=== PATIENT | male | born 1935 | race Caucasian/White ===

== ENCOUNTER 2016-09-11 12:25 | Inpatient (IN) | payer MEDICARE, OTHER ==
[2016-09-11] MEDS ORDERED: Acetaminophen 325 MG Tab PO PRN (14:17)
[2016-09-11] MEDS ORDERED: oxyCODONE 5 MG Tab PO PRN (14:17)
[2016-09-11] MEDS: atorvaSTATin 10 MG Tab PO SCH (19:33)
[2016-09-11] MEDS: Metoprolol Tartrate 25 MG Tab PO SCH (19:34)
[2016-09-12] MEDS ORDERED: PROBENECID 250 MG PO SCH (08:00)
[2016-09-12] MEDS: Aspirin 325 MG Tab.EC PO SCH (08:01)
[2016-09-12] MEDS: Polyethylene Glycol 3350 Powder 17 GM Packet PO SCH (08:01)
[2016-09-12] MEDS: Metoprolol Tartrate 25 MG Tab PO SCH ×2 (08:01→20:46)
[2016-09-12] MEDS: Thiamine 100 MG Tab PO SCH (08:01)
[2016-09-12] MEDS: Enoxaparin 30 MG/0.3 ML Syringe SUBCUT SCH (08:01)
[2016-09-12] MEDS: Cyanocobalamin (Vitamin B12) 1,000 MCG Tab PO SCH (08:01)
[2016-09-12] MEDS: Tamsulosin 0.4 MG Cap.ER PO SCH (08:02)
[2016-09-12] MEDS: Folic Acid 1 MG Tab PO SCH (08:02)
[2016-09-12] MEDS: Multivitamins with Iron/Calcium/Folic Acid/Minerals Tab PO SCH (08:02)
[2016-09-12] MEDS: oxyCODONE 5 MG Tab PO PRN ×3 (08:02→21:18)
[2016-09-12] MEDS: Allopurinol 100 MG Tab PO SCH (10:43)
[2016-09-12] MEDS: atorvaSTATin 10 MG Tab PO SCH (20:47)
--- NOTE | 2016-09-12 21:35 | PCM.HP ---
H&P History of Present Illness - General Date of Service: 09/12/16 Admit Problem/Dx: Admission Diagnosis/Problem Admission Diagnosis/Problem Rehabilitation therapy 80 year old male status post right total knee arthroplasty. Source of Information: Patient - History of Present Illness Duration of Symptoms: Reports: Day(s): Location: Reports: lower extremity, right Quality: Reports: Ache Improves with: Reports: Cold therapy Worsens with: Reports: Movement Associated Symptoms: Reports: no other symptoms Right Knee Pain Score (Numeric/FACES): 3 - Related Data Allergies/Adverse Reactions: Allergies Allergy/AdvReac Type Severity Reaction Status Date / Time lisinopril Allergy Swelling Verified 09/11/16 13:56 NSAIDS (Non-Steroidal AdvReac Renal Verified 09/11/16 13:56 Anti-Inflamma Failure Home Medications: Home Meds Allopurinol [Zyloprim] 100 mg PO DAILY 08/16/13 [History] Probenecid 250 mg PO DAILY 08/16/13 [History] Metoprolol Tartrate [Lopressor] 12.5 mg PO BID 09/04/13 [History] atorvaSTATin [Lipitor] 10 mg PO BEDTIME 09/04/13 [History] Aspirin 325 mg PO DAILY 06/16/15 [History] Cyanocobalamin (Vitamin B-12) [B-12] 1,000 mcg PO DAILY 06/16/15 [History] Folic Acid 1 mg PO DAILY 06/16/15 [History] Multivitamin with Minerals [Multiple Vitamin] 1 tab PO DAILY 06/16/15 [History] Thiamine HCl 100 mg PO DAILY 06/16/15 [History] Acetaminophen [Tylenol] 650 mg PO Q6H PRN 09/09/15 [History] Enoxaparin [Lovenox] 30 mg SUBCUT DAILY 09/11/16 [History] Polyethylene Glycol 3350 [MiraLAX] 17 gm PO DAILY PRN 09/11/16 [History] Sennosides/Docusate Sodium [Senna-Docusate Sodium Tablet] 1 tab PO DAILY [History] Tamsulosin [Flomax] 0.4 mg PO DAILY 09/11/16 [History] oxyCODONE HCl [Roxicodone] 5 - 10 mg PO Q4HR PRN 09/11/16 [History] Past Medical History HEENT History: Reports: Allergic rhinitis, Cataract Cardiovascular History: Reports: Heart murmur, Heart valve replacement, Hypertension Respiratory History: Reports: Intubation, previous Gastrointestinal History: Reports: Colon polyp Genitourinary History: Reports: BPH Musculoskeletal History: Reports: Arthritis, Back pain, chronic, Fracture, Gout , Osteoarthritis Other Musculoskeletal History: FX ANKLE YRS AGO Psychiatric History: Reports: Other (see below) Other Psychiatric History: ETOH abuse Endocrine/Metabolic History: Reports: Obesity/BMI 30+ - Past Surgical History HEENT Surgical History: Reports: Cataract surgery Cardiovascular Surgical History: Reports: Valve replacement Respiratory Surgical History: Reports: None GI Surgical History: Reports: Colonoscopy, EGD, Hernia repair/other Endocrine Surgical History: Reports: None Neurological Surgical History: Reports: Laminectomy Musculoskeletal Surgical History: Reports: Hip replacement Other Musculoskeletal Surgeries/Procedures:: Lumbar laminectomy 4-5. LTHA Dermatological Surgical History: Reports: None Social & Family History - Tobacco Use Smoking Status *Q: Never Smoker Years of Tobacco use: 2 Used Tobacco, but Quit: No Second Hand Smoke Exposure: No - Caffeine Use Caffeine Use: Reports: Coffee - Alcohol Use Days Per Week of Alcohol Use: 5 Number of Drinks Per Day: 2 Total Drinks Per Week: 10 - Recreational Drug Use Recreational Drug Use: No Drug Use in Last 12 Months: No H&P Review of Systems - Review of Systems: Review Of Systems: See Below General: Denies: fever, chills HEENT: Reports: no symptoms Pulmonary: Reports: No Symptoms. Denies: Shortness of Breath, Cough Cardiovascular: Denies: chest pain, dyspnea on exertion Gastrointestinal: Reports: No symptoms. Denies: Abdominal pain, Constipation, Diarrhea, Nausea, Vomiting Genitourinary: Reports: no symptoms. Denies: dysuria, frequency Musculoskeletal: Reports: joint pain Skin: Reports: no symptoms. Denies: rash Psychiatric: Reports: no symptoms Neurological: Reports: No Symptoms Hematologic/Lymphatic: Reports: no symptoms Immunologic: Reports: no symptoms Exam - Exam Exam: See Below - Vital Signs Vital Signs: Last Vital Signs Temp 36.9 C 09/12/16 17:23 Pulse 85 09/12/16 17:23 Resp 20 09/12/16 17:23 BP 122/80 09/12/16 20:46 Pulse Ox 96 09/12/16 17:23 Weight: 78.471 kg - Exam General: alert, oriented HEENT: Conjunctiva clear, EOMI, Mucosa moist & pink, Pupils equal, Pupils reactive Neck: supple Lungs: Clear to auscultation, Normal respiratory effort Cardiovascular: regular rate, regular rhythm, systolic murmur Abdomen: normal bowel sounds, soft (Male) Exam: Deferred Extremities: edema (trace) Skin: warm, dry *Q Meaningful Use (ADM) - VTE *Q VTE Criteria *Q: - Stroke *Q Stroke Criteria *Q: - AMI *Q AMI Criteria *Q: - Problem List (1) History of total knee arthroplasty SNOMED Code(s): 0904609938118, 857756902, 6361250746464 ICD Code: Z96.659 - PRESENCE OF UNSPECIFIED ARTIFICIAL KNEE JOINT Status: Acute Current Visit: No Qualifiers: Laterality: left Qualified Code(s): Z96.652 - Presence of left artificial knee joint (2) Aortic valve replaced SNOMED Code(s): 3290062853679, 634489541, 090186463, 8964176580644 ICD Code: Z95.2 - PRESENCE OF PROSTHETIC HEART VALVE Status: Chronic Current Visit: No (3) HTN, Benign essential hypertension SNOMED Code(s): 2264052 ICD Code: I10 - ESSENTIAL (PRIMARY) HYPERTENSION Status: Chronic Current Visit: No (4) Hyperlipidemia SNOMED Code(s): 13846382 ICD Code: E78.5 - HYPERLIPIDEMIA, UNSPECIFIED Status: Chronic Current Visit: No Problem List Initiated/Reviewed/Updated: Yes Orders Last 24hrs: Active Orders 24 hr Category Date Time Status CBC W/O DIFF,HEMOGRAM [HEME] ONETIME Lab 09/14/16 07:00 Ordered Allopurinol [Zyloprim] Med 09/12/16 08:00 Active 100 mg PO DAILY Aspirin [Ecotrin] Med 09/12/16 08:00 Active 325 mg PO DAILY Cyanocobalamin (Vitamin B12) [Vitamin B12] Med 09/12/16 08:00 Active 1,000 mcg PO DAILY Docusate Sodium/Sennosides [Senna Plus] Med 09/12/16 08:00 Active 1 tab PO DAILY Enoxaparin [Lovenox] Med 09/12/16 08:00 Active 30 mg SUBCUT DAILY Folic Acid Med 09/12/16 08:00 Active 1 mg PO DAILY Multivitamins w-Iron/Ca/FA/Min [Thera M Plus] Med 09/12/16 08:00 Active 1 tab PO DAILY Polyethylene Glycol 3350 [MiraLAX] Med 09/12/16 08:00 Active 17 gm PO DAILY Probenecid Med 09/12/16 11:00 Active 250 mg PO DAILY Tamsulosin [Flomax] Med 09/12/16 08:00 Active 0.4 mg PO DAILY Thiamine [Vitamin B-1] Med 09/12/16 08:00 Active 100 mg PO DAILY K Pad [Heat Therapy] [OM.PC] Routine Oth 09/12/16 10:10 Ordered Medication Orders Acetaminophen (Tylenol) 650 mg PO Q6H PRN PRN Reason: Pain Allopurinol (Zyloprim) 100 mg PO DAILY [facility] Last Admin: 09/12/16 10:43 Dose: 100 mg Aspirin (Ecotrin) 325 mg PO DAILY [facility] Last Admin: 09/12/16 08:01 Dose: 325 mg Atorvastatin Calcium (Lipitor) 10 mg PO BEDTIME [facility] Last Admin: 09/12/16 20:47 Dose: 10 mg Admin: 09/11/16 19:33 Dose: 10 mg Cyanocobalamin (Vitamin B12) 1,000 mcg PO DAILY [facility] Last Admin: 09/12/16 08:01 Dose: 1,000 mcg Enoxaparin Sodium (Lovenox) 30 mg SUBCUT DAILY [facility] Stop: 09/21/16 08:01 Last Admin: 09/12/16 08:01 Dose: 30 mg Folic Acid (Folic Acid) 1 mg PO DAILY [facility] Last Admin: 09/12/16 08:02 Dose: 1 mg Metoprolol Tartrate (Lopressor) 12.5 mg PO BID [facility] Last Admin: 09/12/16 20:46 Dose: 12.5 mg Admin: 09/12/16 08:01 Dose: 12.5 mg Admin: 09/11/16 19:34 Dose: 12.5 mg Multivitamins/Minerals (Thera M Plus) 1 tab PO DAILY [facility] Last Admin: 09/12/16 08:02 Dose: 1 tab Oxycodone HCl (Oxycodone) 5 - 10 mg PO Q4HR PRN PRN Reason: Pain Last Admin: 09/12/16 21:18 Dose: 10 mg Admin: 09/12/16 12:58 Dose: 10 mg Admin: 09/12/16 08:02 Dose: 10 mg Polyethylene Glycol (Miralax) 17 gm PO DAILY [facility] Last Admin: 09/12/16 08:01 Dose: 17 gm Probenecid (Probenecid) 250 mg PO DAILY [facility] Last Admin: 09/12/16 10:42 Dose: 250 mg Senna/Docusate Sodium (Senna Plus) 1 tab PO BID PRN PRN Reason: Constipation Senna/Docusate Sodium (Senna Plus) 1 tab PO DAILY [facility] Last Admin: 09/12/16 08:01 Dose: 1 tab Tamsulosin HCl (Flomax) 0.4 mg PO DAILY [facility] Last Admin: 09/12/16 08:02 Dose: 0.4 mg Thiamine HCl (Vitamin B-1) 100 mg PO DAILY [facility] Last Admin: 09/12/16 08:01 Dose: 100 mg Assessment/Plan Comment:: Patient is admitted to swing bed and enrolled in both physical and occupational therapy. Will continue with current pain management. Code level I. Anticipate patient will return home at end of week.
[2016-09-13] MEDS: Tamsulosin 0.4 MG Cap.ER PO SCH (07:45)
[2016-09-13] MEDS: Enoxaparin 30 MG/0.3 ML Syringe SUBCUT SCH (07:45)
[2016-09-13] MEDS: Metoprolol Tartrate 25 MG Tab PO SCH ×2 (07:45→20:28)
[2016-09-13] MEDS: Allopurinol 100 MG Tab PO SCH (07:45)
[2016-09-13] MEDS: Cyanocobalamin (Vitamin B12) 1,000 MCG Tab PO SCH (07:45)
[2016-09-13] MEDS: Aspirin 325 MG Tab.EC PO SCH (07:45)
[2016-09-13] MEDS: Polyethylene Glycol 3350 Powder 17 GM Packet PO SCH (07:45)
[2016-09-13] MEDS: Multivitamins with Iron/Calcium/Folic Acid/Minerals Tab PO SCH (07:45)
[2016-09-13] MEDS: Thiamine 100 MG Tab PO SCH (07:45)
[2016-09-13] MEDS: Folic Acid 1 MG Tab PO SCH (07:46)
[2016-09-13] MEDS: oxyCODONE 5 MG Tab PO PRN ×3 (07:49→21:48)
[2016-09-13] MEDS: atorvaSTATin 10 MG Tab PO SCH (20:28)
[2016-09-14 06:39] VITALS: BP 120/57
[2016-09-14] MEDS: Thiamine 100 MG Tab PO SCH (07:21)
[2016-09-14] MEDS: Cyanocobalamin (Vitamin B12) 1,000 MCG Tab PO SCH (07:21)
[2016-09-14] MEDS: Allopurinol 100 MG Tab PO SCH (07:21)
[2016-09-14] MEDS: Enoxaparin 30 MG/0.3 ML Syringe SUBCUT SCH (07:22)
[2016-09-14] MEDS: Polyethylene Glycol 3350 Powder 17 GM Packet PO SCH (07:22)
[2016-09-14] MEDS: Metoprolol Tartrate 25 MG Tab PO SCH (07:22)
[2016-09-14] MEDS: Aspirin 325 MG Tab.EC PO SCH (07:22)
[2016-09-14] MEDS: Multivitamins with Iron/Calcium/Folic Acid/Minerals Tab PO SCH (07:22)
[2016-09-14] MEDS: Tamsulosin 0.4 MG Cap.ER PO SCH (07:22)
[2016-09-14] MEDS: Folic Acid 1 MG Tab PO SCH (07:22)
[2016-09-14] MEDS: oxyCODONE 5 MG Tab PO PRN (07:39)
--- NOTE | 2016-09-21 22:30 | PCM.DCSUM1 ---
Discharge Summary - Hospital Course Free Text/Narrative:: 80 year old male admitted to swing bed for therapy following right TKA. - Discharge Data Discharge Date: 09/14/16 Discharge Disposition: Home, Self-Care 01 Condition: Good - Discharge Diagnosis/Problem(s) (1) History of total knee arthroplasty SNOMED Code(s): 2909522208284, 929808468, 8962066131496 ICD Code: Z96.659 - PRESENCE OF UNSPECIFIED ARTIFICIAL KNEE JOINT Status: Acute Qualifiers: Laterality: right Qualified Code(s): Z96.651 - Presence of right artificial knee joint (2) Aortic valve replaced SNOMED Code(s): 8853012696518, 569715299, 110916761, 2029221056294 ICD Code: Z95.2 - PRESENCE OF PROSTHETIC HEART VALVE Status: Chronic (3) HTN, Benign essential hypertension SNOMED Code(s): 3296483 ICD Code: I10 - ESSENTIAL (PRIMARY) HYPERTENSION Status: Chronic (4) Hyperlipidemia SNOMED Code(s): 58796043 ICD Code: E78.5 - HYPERLIPIDEMIA, UNSPECIFIED Status: Chronic - Patient Summary/Data Consults: Consultations 09/11/16 14:14 OT Evaluation and Treatment [CONS] Routine PT Evaluation and Treatment [CONS] Routine - Discharge Plan Home Medications: Home Meds Allopurinol [Zyloprim] 100 mg PO DAILY 08/16/13 [History] Probenecid 250 mg PO DAILY 08/16/13 [History] Metoprolol Tartrate [Lopressor] 12.5 mg PO BID 09/04/13 [History] atorvaSTATin [Lipitor] 10 mg PO BEDTIME 09/04/13 [History] Aspirin 325 mg PO DAILY 06/16/15 [History] Cyanocobalamin (Vitamin B-12) [B-12] 1,000 mcg PO DAILY 06/16/15 [History] Folic Acid 1 mg PO DAILY 06/16/15 [History] Multivitamin with Minerals [Multiple Vitamin] 1 tab PO DAILY 06/16/15 [History] Thiamine HCl 100 mg PO DAILY 06/16/15 [History] Acetaminophen [Tylenol] 650 mg PO Q6H PRN 09/09/15 [History] Polyethylene Glycol 3350 [MiraLAX] 17 gm PO DAILY PRN 09/11/16 [History] Sennosides/Docusate Sodium [Senna-Docusate Sodium Tablet] 1 tab PO DAILY [History] Tamsulosin [Flomax] 0.4 mg PO DAILY 09/11/16 [History] oxyCODONE HCl [Roxicodone] 5 - 10 mg PO Q4HR PRN 09/11/16 [History] - Discharge Summary/Plan Comment DC Time >30 min.: No Discharge Summary/Plan Comment: 80 year old male admitted to swing bed for continued therapy following Right TKA. Patient ambulating well on admission but unable to do stairs and this is necessary for him to return home. Swing bed course unremarkable. He progressed nicely with therapy. Pain was adequately controlled. Vital signs remained stable. Tolerating a regular diet. Pt will be discharged to home. He has follow up appt with orthopedic surgeon on day of discharge. He will follow up with me in one week. - Patient Data Vitals - Most Recent: Last Vital Signs Temp 35.8 C 09/14/16 06:00 Pulse 81 09/14/16 06:00 Resp 20 09/14/16 06:00 BP 120/57 L 09/14/16 07:22 Pulse Ox 94 L 09/14/16 06:00 Weight - Most Recent: 78.471 kg Med Orders - Current: Current Medications Discontinued Medications Acetaminophen (Tylenol) 650 mg PO Q6H PRN PRN Reason: Pain Last Admin: 09/14/16 07:39 Dose: 650 mg Allopurinol (Zyloprim) 100 mg PO DAILY [facility] Last Admin: 09/14/16 07:21 Dose: 100 mg Aspirin (Ecotrin) 325 mg PO DAILY [facility] Last Admin: 09/14/16 07:22 Dose: 325 mg Atorvastatin Calcium (Lipitor) 10 mg PO BEDTIME [facility] Last Admin: 09/13/16 20:28 Dose: 10 mg Cyanocobalamin (Vitamin B12) 1,000 mcg PO DAILY [facility] Last Admin: 09/14/16 07:21 Dose: 1,000 mcg Enoxaparin Sodium (Lovenox) 30 mg SUBCUT DAILY [facility] Stop: 09/21/16 08:01 Last Admin: 09/14/16 07:22 Dose: 30 mg Folic Acid (Folic Acid) 1 mg PO DAILY [facility] Last Admin: 09/14/16 07:22 Dose: 1 mg Metoprolol Tartrate (Lopressor) 12.5 mg PO BID [facility] Last Admin: 09/14/16 07:22 Dose: 12.5 mg Multivitamins/Minerals (Thera M Plus) 1 tab PO DAILY [facility] Last Admin: 09/14/16 07:22 Dose: 1 tab Probenecid [ (Probenecid] 250mg) 0 mg PO DAILY [facility] Last Admin: 09/12/16 10:45 Dose: Not Given Oxycodone HCl (Oxycodone) 5 mg PO Q4HR PRN PRN Reason: Pain Last Admin: 09/11/16 15:05 Dose: 5 mg Oxycodone HCl (Oxycodone) 5 - 10 mg PO Q4HR PRN PRN Reason: Pain Last Admin: 09/14/16 07:39 Dose: 5 mg Polyethylene Glycol (Miralax) 17 gm PO DAILY [facility] Last Admin: 09/14/16 07:22 Dose: 17 gm Probenecid (Probenecid) 250 mg PO DAILY [facility] Probenecid (Probenecid) 250 mg PO DAILY [facility] Last Admin: 09/14/16 07:21 Dose: 250 mg Senna/Docusate Sodium (Senna Plus) 1 tab PO BID PRN PRN Reason: Constipation Senna/Docusate Sodium (Senna Plus) 1 tab PO DAILY [facility] Last Admin: 09/14/16 07:21 Dose: 1 tab Tamsulosin HCl (Flomax) 0.4 mg PO DAILY [facility] Last Admin: 09/14/16 07:22 Dose: 0.4 mg Thiamine HCl (Vitamin B-1) 100 mg PO DAILY [facility] Last Admin: 09/14/16 07:21 Dose: 100 mg *Q Meaningful Use (DIS) - VTE *Q VTE Criteria *Q: - Stroke *Q Stroke Criteria *Q: - AMI *Q AMI Criteria *Q:
== END 2016-09-14 09:30 | disposition home or self-care (01) | DRG 561 ==
LOC: VM.MS 13:40
PROVIDERS: ADMIT Family Medicine; ATTEND Family Medicine
DX: Z47.1 Aftercare following joint replacement surgery (principal); Z96.651 Presence of right artificial knee joint; Z88.8 Allergy status to other drugs, medicaments and biological substances; Z79.82 Long term (current) use of aspirin; Z79.01 Long term (current) use of anticoagulants; Z79.899 Other long term (current) drug therapy; Z95.2 Presence of prosthetic heart valve; N40.0 Benign prostatic hyperplasia without lower urinary tract symptoms; I10 Essential (primary) hypertension; E78.5 Hyperlipidemia, unspecified; M19.90 Unspecified osteoarthritis, unspecified site; M10.9 Gout, unspecified; G89.29 Other chronic pain; M54.9 Dorsalgia, unspecified; E66.9 Obesity, unspecified; Z68.30 Body mass index [BMI] 30.0-30.9, adult; Z96.649 Presence of unspecified artificial hip joint
CPT/HCPCS: 36415; 85027; 94760; 97110-GP; 97116-GP; 97161-GP; 97165-GO; 97530-GP; A9270-GY; J1650

== ENCOUNTER 2018-03-18 16:39 | Emergency (ER) | payer MEDICARE, OTHER ==
[2018-03-18 17:44] VITALS: BP 129/69
--- NOTE | 2018-03-18 18:16 | EDM.PDOC ---
ED HPI GENERAL MEDICAL PROBLEM - General Chief Complaint: Genitourinary Problem Stated Complaint: abdominal pain Time Seen by Provider: 03/18/18 17:35 Source of Information: Reports: Patient History Limitations: Reports: No Limitations - History of Present Illness INITIAL COMMENTS - FREE TEXT/NARRATIVE: Pt. complains of urinary retention. 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 He had a bocanegra catheter placed and this was removed in clinic today at around 10:30 AM. States that since it was removed , he has not been able to void. Onset: Today Onset Date: 03/18/18 Onset Time: 10:30 Location: Reports: Other (urinary) Quality: Reports: Ache, Pressure, Throbbing Severity: Severe lower Abdomen Pain Score (Numeric/FACES): 8 - Related Data Allergies Allergy/AdvReac Type Severity Reaction Status Date / Time lisinopril Allergy Swelling Verified 09/11/16 13:56 NSAIDS (Non-Steroidal AdvReac Renal Verified 09/11/16 13:56 Anti-Inflamma Failure Home Meds: Home Meds Allopurinol [Zyloprim] 100 mg PO DAILY 08/16/13 [History] Probenecid 250 mg PO DAILY 08/16/13 [History] Metoprolol Tartrate [Lopressor] 12.5 mg PO BID 09/04/13 [History] atorvaSTATin [Lipitor] 10 mg PO BEDTIME 09/04/13 [History] Aspirin 325 mg PO DAILY 06/16/15 [History] Cyanocobalamin (Vitamin B-12) [B-12] 1,000 mcg PO DAILY 06/16/15 [History] Folic Acid 1 mg PO DAILY 06/16/15 [History] Multivitamin with Minerals [Multiple Vitamin] 1 tab PO DAILY 06/16/15 [History] Thiamine HCl 100 mg PO DAILY 06/16/15 [History] Acetaminophen [Tylenol] 650 mg PO Q6H PRN 09/09/15 [History] Polyethylene Glycol 3350 [MiraLAX] 17 gm PO DAILY PRN 09/11/16 [History] Sennosides/Docusate Sodium [Senna-Docusate Sodium Tablet] 1 tab PO DAILY PRN [History] Tamsulosin [Flomax] 0.4 mg PO DAILY 09/11/16 [History] oxyCODONE HCl [Roxicodone] 5 - 10 mg PO Q4HR PRN 09/11/16 [History] Ciprofloxacin HCl [Cipro] 500 mg PO BID 03/18/18 [History] Past Medical History HEENT History: Reports: Allergic Rhinitis, Cataract Cardiovascular History: Reports: Heart Murmur, Heart Valve Replacement, Hypertension Respiratory History: Reports: Intubation, Previous Gastrointestinal History: Reports: Colon Polyp Genitourinary History: Reports: BPH Other 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 Musculoskeletal History: Reports: Arthritis, Back Pain, Chronic, Fracture, Gout , Osteoarthritis Other Musculoskeletal History: FX ANKLE YRS AGO Psychiatric History: Reports: Other (See Below) Other Psychiatric History: ETOH abuse Endocrine/Metabolic History: Reports: Obesity/BMI 30+ - Past Surgical History HEENT Surgical History: Reports: Cataract Surgery Cardiovascular Surgical History: Reports: Valve Replacement GI Surgical History: Reports: Colonoscopy, EGD, Hernia Repair/Other Male Surgical History: Reports: Other (See Below) Endocrine Surgical History: Reports: None Neurological Surgical History: Reports: Laminectomy Musculoskeletal Surgical History: Reports: Hip Replacement Dermatological Surgical History: Reports: None Social & Family History - Caffeine Use Caffeine Use: Reports: Coffee - Recreational Drug Use Recreational Drug Use: No ED ROS GENERAL - Review of Systems Review Of Systems: See Below Constitutional: Reports: No Symptoms HEENT: Reports: No Symptoms Respiratory: Reports: No Symptoms Cardiovascular: Reports: No Symptoms Endocrine: Reports: No Symptoms GI/Abdominal: Reports: No Symptoms : Reports: Urinary Retention Musculoskeletal: Reports: No Symptoms Skin: Reports: No Symptoms Neurological: Reports: No Symptoms Psychiatric: Reports: No Symptoms Hematologic/Lymphatic: Reports: No Symptoms Immunologic: Reports: No Symptoms ED EXAM, GENERAL - Physical Exam Exam: See Below General Appearance: Alert, WD/WN, No Apparent Distress GI/Abdominal: Normal Bowel Sounds, Soft, Non-Tender, No Organomegaly, No Distention, No Abnormal Bruit, No Mass, Pelvis Stable (Male) Exam: No Hernia, Normal Inspection Skin Exam: Warm, Dry, Intact, Normal Color, No Rash ED GENERAL MEDICAL PROCEDURES - Additional/Other Procedure(s) Other (Free Text) Procedure(s): Urinary retention evident on exam. Bocanegra catheter was placed. There was so difficulty with placement of initial catheter so a caude cath was placed on second attempt. Pt. reported immediate improvement in discomfort. Course - Vital Signs Last Recorded V/S: Last Vital Signs Temp 36.8 C 03/18/18 17:35 Pulse 66 03/18/18 17:35 Resp 20 03/18/18 17:35 BP 129/69 03/18/18 17:35 Pulse Ox 94 L 03/18/18 17:35 Departure - Departure Time of Disposition: 18:16 Disposition: Home, Self-Care 01 Condition: Good Clinical Impression: Urinary (tract) obstruction - Discharge Information Instructions: Indwelling Urinary Catheter Insertion, Acute Urinary Retention, Male Referrals: Rosario Vicente DO [Primary Care Provider] - Forms: ED Department Discharge Additional Instructions: Follow-up in clinic for bocanegra catheter removal in 1-2 days. Once I hear from urology, I will give you a call to verify when they want to see you. Return to ER if you have any chest pain, abdominal pain, or shortness of breath. - Problem List Review Problem List Initiated/Reviewed/Updated: Yes - Assessment/Plan Plan: Follow-up in clinic for bocanegra catheter removal in 1-2 days. Once I hear from urology, I will give you a call to verify when they want to see you. Return to ER if you have any chest pain, abdominal pain, or shortness of breath.
== END 2018-03-18 18:15 | disposition home or self-care (01) ==
LOC: SUPCPDRO 16:39 → VM.ED 16:39
DX: N13.9 Obstructive and reflux uropathy, unspecified (principal); I10 Essential (primary) hypertension; F17.290 Nicotine dependence, other tobacco product, uncomplicated; Z88.8 Allergy status to other drugs, medicaments and biological substances; Z79.82 Long term (current) use of aspirin; Z79.899 Other long term (current) drug therapy
CPT/HCPCS: 51702; 99283; 99283-GF

== ENCOUNTER 2018-12-19 14:09 | Emergency (ER) | payer MEDICARE, OTHER ==
--- NOTE | 2018-12-19 14:33 | EDM.PDOC ---
ED HPI GENERAL MEDICAL PROBLEM - General Chief Complaint: General Stated Complaint: BLOODY NOSE Time Seen by Provider: 12/19/18 14:15 Source of Information: Reports: Patient History Limitations: Reports: No Limitations - History of Present Illness INITIAL COMMENTS - FREE TEXT/NARRATIVE: Patient comes into the emergency department with complaint of the left nare nosebleed. Patient stated his nose started bleeding approximately 4 hours ago. She did have the bleeding under control and did use a tampon at home however he coughed in the blood clot ended up breaking loose. Patient denies feeling dizzy , lightheaded, nausea or vomiting, week, headache, blurred vision, chest pain, or shortness of breath. Patient is on a daily aspirin but does not take any other antiquated medication. He also does not have any bleeding disorders. Patient denies any nasal trauma. Onset: Sudden Location: Reports: Face Quality: Reports: Other Improves with: Reports: None Worsens with: Reports: None Associated Symptoms: Reports: No Other Symptoms - Related Data Allergies Allergy/AdvReac Type Severity Reaction Status Date / Time lisinopril Allergy Swelling Verified 03/26/18 23:13 NSAIDS (Non-Steroidal AdvReac Renal Verified 03/26/18 23:13 Anti-Inflamma Failure Home Meds: Home Meds Allopurinol [Zyloprim] 100 mg PO DAILY 08/16/13 [History] Probenecid 250 mg PO DAILY 08/16/13 [History] Metoprolol Tartrate [Lopressor] 12.5 mg PO BID 09/04/13 [History] atorvaSTATin [Lipitor] 10 mg PO BEDTIME 09/04/13 [History] Aspirin 325 mg PO DAILY 06/16/15 [History] Cyanocobalamin (Vitamin B-12) [B-12] 1,000 mcg PO DAILY 06/16/15 [History] Folic Acid 1 mg PO DAILY 06/16/15 [History] Multivitamin with Minerals [Multiple Vitamin] 1 tab PO DAILY 06/16/15 [History] Thiamine HCl 100 mg PO DAILY 06/16/15 [History] Acetaminophen [Tylenol] 650 mg PO Q6H PRN 09/09/15 [History] Polyethylene Glycol 3350 [MiraLAX] 17 gm PO DAILY PRN 09/11/16 [History] Sennosides/Docusate Sodium [Senna-Docusate Sodium Tablet] 1 tab PO DAILY PRN [History] Tamsulosin [Flomax] 0.4 mg PO DAILY 09/11/16 [History] oxyCODONE HCl [Roxicodone] 5 - 10 mg PO Q4HR PRN 09/11/16 [History] Ciprofloxacin HCl [Cipro] 500 mg PO BID 03/18/18 [History] Past Medical History HEENT History: Reports: Allergic Rhinitis, Cataract Cardiovascular History: Reports: Heart Murmur, Heart Valve Replacement, Hypertension Respiratory History: Reports: Intubation, Previous Gastrointestinal History: Reports: Colon Polyp Genitourinary History: Reports: BPH Other 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 Musculoskeletal History: Reports: Arthritis, Back Pain, Chronic, Fracture, Gout , Osteoarthritis Other Musculoskeletal History: FX ANKLE YRS AGO Psychiatric History: Reports: Other (See Below) Other Psychiatric History: ETOH abuse Endocrine/Metabolic History: Reports: Obesity/BMI 30+ - Past Surgical History HEENT Surgical History: Reports: Cataract Surgery Cardiovascular Surgical History: Reports: Valve Replacement GI Surgical History: Reports: Colonoscopy, EGD, Hernia Repair/Other Male Surgical History: Reports: Other (See Below) Endocrine Surgical History: Reports: None Neurological Surgical History: Reports: Laminectomy Musculoskeletal Surgical History: Reports: Hip Replacement Dermatological Surgical History: Reports: None Social & Family History - Caffeine Use Caffeine Use: Reports: Coffee ED ROS ENT - Review of Systems Review Of Systems: ROS reveals no pertinent complaints other than HPI. Constitutional: Reports: No Symptoms HEENT: Reports: Nosebleed. Denies: Dental Pain, Ear Pain, Eye Discharge, Eye Pain, Hearing Loss Respiratory: Reports: No Symptoms Cardiovascular: Reports: No Symptoms Endocrine: Reports: No Symptoms GI/Abdominal: Reports: No Symptoms ED EXAM, ENT - Physical Exam Exam: See Below Exam Limited By: No Limitations General Appearance: Alert, WD/WN, No Apparent Distress Eye Exam: Bilateral Eye: EOMI, PERRL Ears: Normal External Exam, Normal Canal, Hearing Grossly Normal Nose: Active Bleeding, Dried Blood. No: Nasal Deformity, Nasal Tenderness, Nasal Ecchymosis, Foreign Body, Septal Hematoma, Septal Perforation, Injected Turbinates Mouth/Throat: Normal Inspection, Normal Gums, Normal Lips Head: Atraumatic, Normocephalic Neck: Normal Inspection, Supple, Non-Tender, Full Range of Motion Respiratory/Chest: No Respiratory Distress, No Accessory Muscle Use Cardiovascular: Normal Peripheral Pulses, Regular Rate, Rhythm Back: Normal Inspection, Full Range of Motion Extremities: Normal Inspection, Normal Range of Motion, Non-Tender Neurological: Alert, Oriented Skin: Warm, Dry, Intact, Normal Color Departure - Departure Time of Disposition: 15:05 Disposition: Home, Self-Care 01 Condition: Good Clinical Impression: Nasal bleeding - Discharge Information *PRESCRIPTION DRUG MONITORING PROGRAM REVIEWED*: Not Applicable *COPY OF PRESCRIPTION DRUG MONITORING REPORT IN PATIENT EV: Not Applicable Instructions: Nosebleed, Adult Forms: ED Department Discharge Additional Instructions: 1. rest 2. try to avoid blowing your nose, can dab the nose 3. Apply pressure to the exterior of the nose if bleeding starts 4. Try to avoid bending over for long periods of time for the next 24 hours to reduce increase vascular pressure to the head and nose region 5. Follow up as needed 6. Activity and diet as tolerated 7. Follow up as need be - Problem List Review Problem List Initiated/Reviewed/Updated: Yes - Assessment/Plan Assessment:: 1. nose bleed Plan: 1. Silver nitrate nasal cautery applied to the left nare
[2018-12-19 16:39] VITALS: BP 151/77; PULSE 73
== END 2018-12-19 14:55 | disposition home or self-care (01) ==
LOC: VM.ED 14:09
DX: R04.0 Epistaxis (principal); I10 Essential (primary) hypertension; Z79.899 Other long term (current) drug therapy; Z88.8 Allergy status to other drugs, medicaments and biological substances
CPT/HCPCS: 30901; 99283; 99283-GF

== ENCOUNTER 2019-09-27 01:55 | Emergency (ER) | payer MEDICARE, OTHER ==
[2019-09-27] MEDS ORDERED: Oxymetazoline 0.05% Nasal Spray 30 ML Bottle NAS ONE (02:05)
--- NOTE | 2019-09-27 02:35 | EDM.PDOC ---
ED HPI GENERAL MEDICAL PROBLEM - General Stated Complaint: Nosebleed Time Seen by Provider: 09/27/19 02:20 Source of Information: Reports: Patient History Limitations: Reports: No Limitations - History of Present Illness INITIAL COMMENTS - FREE TEXT/NARRATIVE: Patient comes emergency department today with complaints of a nosebleed. This patient has struggled with nosebleeds for many years. He has had cautery on his nose multiple times for his nosebleeds. He does take a half an aspirin a day. Tonight when he was getting ready for bed he suddenly started to have a spontaneous nosebleed. He did attempt direct pressure cold packs as well as a tampon in the position of the left nares without controlling the bleeding. He is only on a 1 mg aspirin daily. He is not on any other anticoagulants or antiplatelet therapy. - Related Data Allergies Allergy/AdvReac Type Severity Reaction Status Date / Time lisinopril Allergy Swelling Verified 09/27/19 02:46 NSAIDS (Non-Steroidal AdvReac Renal Verified 09/27/19 02:46 Anti-Inflamma Failure Home Meds: Home Meds Probenecid 250 mg PO DAILY 08/16/13 [History] allopurinoL [Zyloprim] 200 mg PO DAILY 08/16/13 [History] Metoprolol Tartrate [Lopressor] 12.5 mg PO BID 09/04/13 [History] atorvaSTATin [Lipitor] 10 mg PO BEDTIME 09/04/13 [History] Cyanocobalamin (Vitamin B-12) [B-12] 1,000 mcg PO DAILY 06/16/15 [History] Folic Acid 1 mg PO DAILY 06/16/15 [History] Multivitamin with Minerals [Multiple Vitamin] 1 tab PO DAILY 06/16/15 [History] Thiamine HCl 100 mg PO DAILY 06/16/15 [History] Albuterol [Ventolin HFA] 2 puff IH Q4H PRN 12/19/18 [History] Calcium Carbonate/Vitamin D3 [Caltrate-600 with Vit D Tab] 1 each PO BID [History] amLODIPine [Norvasc] 5 mg PO DAILY 12/19/18 [History] Aspirin 81 mg PO DAILY 09/27/19 [History] Past Medical History HEENT History: Reports: Allergic Rhinitis, Cataract Cardiovascular History: Reports: Heart Murmur, Heart Valve Replacement, Hypertension Respiratory History: Reports: Intubation, Previous Gastrointestinal History: Reports: Colon Polyp Genitourinary History: Reports: BPH Other 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 Musculoskeletal History: Reports: Arthritis, Back Pain, Chronic, Fracture, Gout , Osteoarthritis Other Musculoskeletal History: FX ANKLE YRS AGO Psychiatric History: Reports: Other (See Below) Other Psychiatric History: ETOH abuse Endocrine/Metabolic History: Reports: Obesity/BMI 30+ - Past Surgical History HEENT Surgical History: Reports: Cataract Surgery Cardiovascular Surgical History: Reports: Valve Replacement GI Surgical History: Reports: Colonoscopy, EGD, Hernia Repair/Other Male Surgical History: Reports: Other (See Below) Endocrine Surgical History: Reports: None Neurological Surgical History: Reports: Laminectomy Musculoskeletal Surgical History: Reports: Hip Replacement Dermatological Surgical History: Reports: None Social & Family History - Caffeine Use Caffeine Use: Reports: Coffee ED ROS ENT - Review of Systems Review Of Systems: Comprehensive ROS is negative, except as noted in HPI. ED EXAM, ENT - Physical Exam Exam: See Below Exam Limited By: No Limitations General Appearance: Alert, WD/WN, No Apparent Distress Eye Exam: Bilateral Eye: EOMI Ears: Normal External Exam, Normal TMs Nose: Active Bleeding (There is a very active moderately heavy bleed from the left nares. There is so much blood I am unable to identify any sites of bleeding.) Mouth/Throat: Normal Inspection, Normal Gums, Normal Teeth Head: Atraumatic, Normocephalic Neck: Normal Inspection, Supple, Non-Tender Respiratory/Chest: No Respiratory Distress Cardiovascular: Normal Peripheral Pulses, Regular Rate, Rhythm Course - Vital Signs Last Recorded V/S: Last Vital Signs Temp 36.2 C 09/27/19 01:55 Pulse 65 09/27/19 01:55 Resp 16 09/27/19 01:55 BP 116/73 09/27/19 01:55 Pulse Ox 98 09/27/19 01:55 - Orders/Labs/Meds Meds: Medications Discontinued Medications Generic Name Dose Route Start Last Admin Trade Name Freq PRN Reason Stop Dose Admin Oxymetazoline HCl 1 ml 09/27/19 02:05 09/27/19 02:15 Nasal Decongestant Stewardson JAYLEEN 09/27/19 02:06 3 sprays ONETIME ONE Administration - Re-Assessments/Exams Free Text/Narrative Re-Assessment/Exam: 09/27/19 02:32 Initially attempted to use some oxymetazoline for vasoconstriction to decrease the bleeding although there was such a rather moderate to large amount of bleeding that we are unable to do so. A nasal Rhino Rocket which was coated in bacitracin was placed in the left nares and filled. Did take quite a bit of pressure to obtain hemostasis in the left nares. He was monitored for the next 1/2 hr or so and no active bleeding anteriorly or posteriorly. Discussed plan of care with the patient. He was comfortable with the plan and questions answered. 09/27/19 18:40 Departure - Departure Time of Disposition: 02:33 Disposition: Home, Self-Care 01 Clinical Impression: Epistaxis - Discharge Information *PRESCRIPTION DRUG MONITORING PROGRAM REVIEWED*: Not Applicable *COPY OF PRESCRIPTION DRUG MONITORING REPORT IN PATIENT EV: Not Applicable Instructions: Nosebleed, [id number] Referrals: Rosario Vicente DO [Primary Care Provider] - Forms: ED Department Discharge Additional Instructions: Leave the Rhino Rocket in the nares for the next 48 hours. Contact your clinic sunday morning to get the rhino rocket out in the clinic. Until that time saline nasal spray 2 sprays 4 times a day, and then once the rhino rocket is out do the same to the left nares on a regular basis to keep the sinus cavity moist to prevent further or recurrent bleeding. Return to the ED if new or worsening symptoms. Follow up with PCP on sunday to get your Rhino Rocket removed in the clinic. Sepsis Event Note - Focused Exam Date Exam was Performed: 09/27/19 Time Exam was Performed: 18:39
[2019-09-27 02:55] VITALS: BP 116/73; PULSE 65
== END 2019-09-27 03:02 | disposition home or self-care (01) ==
LOC: VM.ED 01:55
DX: R04.0 Epistaxis (principal); I10 Essential (primary) hypertension; M10.9 Gout, unspecified; E66.9 Obesity, unspecified; Z68.30 Body mass index [BMI] 30.0-30.9, adult; Z88.8 Allergy status to other drugs, medicaments and biological substances; Z79.899 Other long term (current) drug therapy; Z79.82 Long term (current) use of aspirin
CPT/HCPCS: 30903; 99283-25; 99283-GF; A9270-GY

== ENCOUNTER 2019-10-24 05:05 | Emergency (ER) | payer MEDICARE, OTHER ==
[2019-10-24] MEDS ORDERED: Sodium Chloride 0.9% 10 ML Syringe FLUSH PRN (05:54)
--- NOTE | 2019-10-24 06:04 | EDM.PDOC ---
ED HPI GENERAL MEDICAL PROBLEM - General Chief Complaint: General Stated Complaint: general Time Seen by Provider: 10/24/19 05:48 Source of Information: Reports: Patient History Limitations: Reports: No Limitations - History of Present Illness INITIAL COMMENTS - FREE TEXT/NARRATIVE: Patient comes emergency department today by ambulance from home with complaints of blood in his urine and shortness of breath. Patient for about the past 2 months has struggled with constant shortness of breath. He is currently being evaluated and treated for prostate cancer and has been referred to pulmonology for shortness of breath. They started him on some Lasix although it has not improved his shortness of breath. Shortness of breath is no worse than it has been over the past 2 months. He is just getting tired of being constantly short of breath. He does get more short of breath with physical activity. He has had no cough congestion fever or chills. He denies any pain in his chest at rest or with physical exertion. No palpitations weakness dizziness lightheadedness or syncope. At about 2:00 this morning he got up and went to the bathroom and noticed that there is quite a bit of blood in his urine. He has no dysuria or urinary frequency. He does have a history of hematuria with his prostate cancer. He reports that he is still getting an injection every couple of months for his prostate cancer he has never received chemotherapy radiation or had surgery on his prostate. No black or tarry stools. No flank pain. He has never had a prostatectomy for his prostate cancer. He tells me that he gets a injection for his prostate every few months. But is not actively receiving any chemotherapy. He also complains of some changes in his bowel habits over the past couple of months. He typically has had bowel movements on a daily basis but now is to every 3 to 4 days he feels bloated and distended and he has pain in his left lower quadrant. No nausea or vomiting. No black or tarry stools. He has had a good appetite and no weight loss. Abdomen Pain Score (Numeric/FACES): 1 - Related Data Allergies Allergy/AdvReac Type Severity Reaction Status Date / Time lisinopril Allergy Swelling Verified 10/24/19 05:09 NSAIDS (Non-Steroidal AdvReac Renal Verified 10/24/19 05:09 Anti-Inflamma Failure Home Meds: Home Meds Probenecid 250 mg PO DAILY 08/16/13 [History] allopurinoL [Zyloprim] 200 mg PO DAILY 08/16/13 [History] Metoprolol Tartrate [Lopressor] 12.5 mg PO BID 09/04/13 [History] atorvaSTATin [Lipitor] 10 mg PO BEDTIME 09/04/13 [History] Cyanocobalamin (Vitamin B-12) [B-12] 1,000 mcg PO DAILY 06/16/15 [History] Folic Acid 1 mg PO DAILY 06/16/15 [History] Multivitamin with Minerals [Multiple Vitamin] 1 tab PO DAILY 06/16/15 [History] Thiamine HCl 100 mg PO DAILY 06/16/15 [History] Albuterol [Ventolin HFA] 2 puff IH Q4H PRN 12/19/18 [History] Calcium Carbonate/Vitamin D3 [Caltrate-600 with Vit D Tab] 1 each PO BID [History] amLODIPine [Norvasc] 5 mg PO DAILY 12/19/18 [History] Aspirin/Calcium Carbonate/Mag [Aspirin Buffered 325 MG Tablet] 325 mg PO DAILY 10/24/19 [History] Finasteride 1 tab PO DAILY 10/24/19 [History] Furosemide 20 mg PO BID 10/24/19 [History] Sennosides/Docusate Sodium [Senna-S 8.6-50 mg Tablet] 2 tab PO BID 10/24/19 [ History] Tamsulosin [Tamsulosin 24 Hr] 0.4 mg PO DAILY 10/24/19 [History] Past Medical History HEENT History: Reports: Allergic Rhinitis, Cataract Cardiovascular History: Reports: Heart Murmur, Heart Valve Replacement, Hypertension Respiratory History: Reports: Intubation, Previous Gastrointestinal History: Reports: Colon Polyp Genitourinary History: Reports: BPH Other 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 Musculoskeletal History: Reports: Arthritis, Back Pain, Chronic, Fracture, Gout , Osteoarthritis Other Musculoskeletal History: FX ANKLE YRS AGO Psychiatric History: Reports: Other (See Below) Other Psychiatric History: ETOH abuse Endocrine/Metabolic History: Reports: Obesity/BMI 30+ Oncologic (Cancer) History: Reports: Prostate - Past Surgical History HEENT Surgical History: Reports: Cataract Surgery Cardiovascular Surgical History: Reports: Valve Replacement GI Surgical History: Reports: Colonoscopy, EGD, Hernia Repair/Other Endocrine Surgical History: Reports: None Neurological Surgical History: Reports: Laminectomy Musculoskeletal Surgical History: Reports: Hip Replacement Dermatological Surgical History: Reports: None Social & Family History - Tobacco Use Smoking Status *Q: Former Smoker Used Tobacco, but Quit: Yes Month/Year Tobacco Last Used: 1959 - Caffeine Use Caffeine Use: Reports: Coffee ED ROS GENERAL - Review of Systems Review Of Systems: Comprehensive ROS is negative, except as noted in HPI. ED EXAM, GENERAL - Physical Exam Exam: See Below Free Text/Narrative:: He is able to speak in full sentences and is clearly in no respiratory distress. Exam Limited By: No Limitations General Appearance: Alert, WD/WN, No Apparent Distress Eye Exam: Bilateral Eye: EOMI, PERRL Ears: Normal External Exam, Normal TMs Nose: Normal Inspection Throat/Mouth: Normal Inspection, Normal Lips, Normal Oropharynx, Normal Voice Head: Atraumatic, Normocephalic Neck: Normal Inspection, Supple, Non-Tender, Full Range of Motion Respiratory/Chest: No Respiratory Distress, Lungs Clear, Normal Breath Sounds, No Accessory Muscle Use, Chest Non-Tender Cardiovascular: Normal Peripheral Pulses, Regular Rate, Rhythm Peripheral Pulses: 2+: Radial (L), Radial (R), Popliteal (L), Popliteal (R) GI/Abdominal: Normal Bowel Sounds, Soft, Distended (minnimally distended. Dullness to percussion throughout the abd. ), Tender (LLQ). No: Guarding, Rigid , Rebound, Hernia (Male) Exam: Deferred Rectal (Males) Exam: Deferred Back Exam: Normal Inspection, Full Range of Motion Extremities: Normal Inspection, Normal Range of Motion, Non-Tender, No Pedal Edema, Normal Capillary Refill Neurological: Alert, Oriented, Normal Cognition, Normal Gait, No Motor/Sensory Deficits Psychiatric: Normal Affect, Normal Mood Skin Exam: Warm, Dry, Intact, Normal Color, No Rash Course - Vital Signs Last Recorded V/S: Last Vital Signs Temp 35.8 C L 10/24/19 05:09 Pulse 70 10/24/19 05:09 Resp 20 10/24/19 05:09 BP 154/93 H 10/24/19 05:09 Pulse Ox 97 10/24/19 05:09 - Orders/Labs/Meds Orders: Active Orders 24 hr Category Date Time Status EKG Documentation Completion [RC] STAT Care 10/24/19 05:54 Active CULTURE URINE [RM] Stat Lab 10/24/19 06:12 Received Lactated Ringers [Ringers, Lactated] 1,000 ml Med 10/24/19 06:30 Active IV ASDIRECTED Sodium Chloride 0.9% [Saline Flush] Med 10/24/19 05:54 Active 10 ml FLUSH ASDIRECTED PRN Peripheral IV Insertion Adult [OM.PC] Stat Oth 10/24/19 05:54 Ordered Medication Orders Lactated Ringer's (Ringers, Lactated) 1,000 mls @ 150 mls/hr IV ASDIRECTED KATE Last Admin: 10/24/19 06:52 Dose: 150 mls/hr Sodium Chloride (Saline Flush) 10 ml FLUSH ASDIRECTED PRN PRN Reason: Keep Vein Open Last Admin: 10/24/19 06:46 Dose: 10 ml Labs: Laboratory Tests 10/24/19 10/24/19 10/24/19 Range/Units 06:07 06:07 06:07 WBC 9.5 (4.0-10.0) x10^3/uL RBC 3.81 L (4.5-6.0) x10^6/uL Hgb 12.7 L D (14.0-18.0) g/dL Hct 37.3 L (40.0-52.0) % MCV 97.9 H (78.0-93.0) fL MCH 33.3 H (26.0-32.0) pg MCHC 34.0 (32.0-36.0) g/dL RDW Coeff of Deb 13.8 (10.0-15.0) % Plt Count 80 L D (130-400) x10^3/uL Add Manual Diff Yes Neutrophils % (Manual) 82 H (50-80) % Band Neutrophils % 4 (0-6) % Lymphocytes % (Manual) 7 L (25-50) % Monocytes % (Manual) 7 (2-11) % Anisocytosis PT (9.5-12.3) SEC INR (2.0-3.5) Sodium 137 (136-145) mmol/L Potassium 3.1 L (3.5-5.1) mmol/L Chloride 94 L (98-107) mmol/L Carbon Dioxide 35 H (21-32) mmol/L Anion Gap 11.1 (10-20) mmol/L BUN 26 H (7-18) mg/dL Creatinine 1.6 H (0.70-1.30) mg/dL Est Cr Clr Drug Dosing 30.46 mL/min Estimated GFR (MDRD) 41 Glucose 127 H (74-106) mg/dL Calcium 8.4 L (8.5-10.1) mg/dL Corrected Calcium 9.36 (8.5-10.1) mg/dL Total Bilirubin 1.5 H (0.2-1.0) mg/dL AST 281 H (15-37) U/L ALT 150 H (16-63) U/L Alkaline Phosphatase 151 H (46-116) U/L Troponin I 0.033 (<=0.056) ng/mL NT-Pro-B Natriuret Pep 1419 H (<=450) pg/mL Total Protein 6.0 L (6.4-8.2) g/dL Albumin 2.8 L (3.4-5.0) g/dL Globulin 3.2 Albumin/Globulin Ratio 0.88 Urine Color (YELLOW) Urine Appearance (CLEAR) Urine pH (5.0-8.0) Ur Specific [place] Urine Protein (NEGATIVE) mg/dL Urine Glucose (UA) (NEGATIVE) mg/dL Urine Ketones (NEGATIVE) mg/dL Urine Occult Blood (NEGATIVE) Urine Nitrite (NEGATIVE) Urine Bilirubin (NEGATIVE) Urine Urobilinogen (0.2) EU/dL Ur Leukocyte Esterase (NEGATIVE) Urine RBC (NOT SEEN) /HPF Urine WBC (NOT SEEN) /HPF Ur Squamous Epith Cells (NEGATIVE) /HPF Urine Bacteria (NEGATIVE) /HPF Urine Mucus (NEGATIVE) /LPF 10/24/19 10/24/19 Range/Units 06:07 06:12 WBC (4.0-10.0) x10^3/uL RBC (4.5-6.0) x10^6/uL Hgb (14.0-18.0) g/dL Hct (40.0-52.0) % MCV (78.0-93.0) fL MCH (26.0-32.0) pg MCHC (32.0-36.0) g/dL RDW Coeff of Deb (10.0-15.0) % Plt Count (130-400) x10^3/uL Add Manual Diff Neutrophils % (Manual) (50-80) % Band Neutrophils % (0-6) % Lymphocytes % (Manual) (25-50) % Monocytes % (Manual) (2-11) % Anisocytosis PT 12.1 (9.5-12.3) SEC INR 1.1 L (2.0-3.5) Sodium (136-145) mmol/L Potassium (3.5-5.1) mmol/L Chloride (98-107) mmol/L Carbon Dioxide (21-32) mmol/L Anion Gap (10-20) mmol/L BUN (7-18) mg/dL Creatinine (0.70-1.30) mg/dL Est Cr Clr Drug Dosing mL/min Estimated GFR (MDRD) Glucose (74-106) mg/dL Calcium (8.5-10.1) mg/dL Corrected Calcium (8.5-10.1) mg/dL Total Bilirubin (0.2-1.0) mg/dL AST (15-37) U/L ALT (16-63) U/L Alkaline Phosphatase (46-116) U/L Troponin I (<=0.056) ng/mL NT-Pro-B Natriuret Pep (<=450) pg/mL Total Protein (6.4-8.2) g/dL Albumin (3.4-5.0) g/dL Globulin Albumin/Globulin Ratio Urine Color Red H (YELLOW) Urine Appearance Turbid H (CLEAR) Urine pH 6.5 (5.0-8.0) Ur Specific [place] 1.020 Urine Protein >=300 H (NEGATIVE) mg/dL Urine Glucose (UA) 100 H (NEGATIVE) mg/dL Urine Ketones 15 H (NEGATIVE) mg/dL Urine Occult Blood Large H (NEGATIVE) Urine Nitrite Negative (NEGATIVE) Urine Bilirubin Large H (NEGATIVE) Urine Urobilinogen 4.0 H (0.2) EU/dL Ur Leukocyte Esterase Large H (NEGATIVE) Urine RBC Packed H (NOT SEEN) /HPF Urine WBC 0-5 (NOT SEEN) /HPF Ur Squamous Epith Cells Not seen (NEGATIVE) /HPF Urine Bacteria Few H (NEGATIVE) /HPF Urine Mucus Rare H (NEGATIVE) /LPF Meds: Medications Generic Name Dose Route Start Last Admin Trade Name Freq PRN Reason Stop Dose Admin Lactated Ringer's 1,000 mls @ 150 mls/hr 10/24/19 06:30 10/24/19 06:52 Ringers, Lactated IV 150 mls/hr ASDIRECTED KATE Administration Sodium Chloride 10 ml 10/24/19 05:54 10/24/19 06:46 Saline Flush FLUSH 10 ml ASDIRECTED PRN Administration Keep Vein Open Discontinued Medications Generic Name Dose Route Start Last Admin Trade Name Flori PRN Reason Stop Dose Admin Iopamidol 100 ml 10/24/19 06:26 10/24/19 06:59 Isovue-300 (61%) IVPUSH 10/24/19 06:27 100 ml ONETIME ONE Administration - Radiology Interpretation Free Text/Narrative:: CT scan per radiology identifies a rather large heterogeneous polyploid mass on the bladder concerning for transitional cell carcinoma. As well as rather extensive hypodensities throughout the liver concerning for metastasis as well as bone marrow changes consistent with metastasis as well. - Re-Assessments/Exams Free Text/Narrative Re-Assessment/Exam: 10/24/19 06:07 Reviewing the patient's chart he actually had a pulmonology telehealth visit on 10/23/2019 for shortness of breath that according to his note he has reported since February 2019. He had an echocardiogram earlier this month with showed an ejection fraction of 60 to 65%. 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 He also had a cardiology appointment on 10/17/19 I spent an extended period of time reviewing the patient's chart through his [facility] portal he is a rather poor biomedical scientist. 10/24/19 09:11 Is urinated multiple more times while in the emergency department which continues to be quite brandy blood. I reviewed the CT scan results with the patient and my concerns for the reoccurrence or development of some type of malignancy on or around his bladder. This is most likely what is causing his hematuria. With the amount of bleeding his hemoglobin is still okay at 12.7. I called and spoke with Dr. Carver at [facility] in [place]. HPI ER course findings concerns were relayed to him. He accepted the patient in transfer at this time by ambulance. No new orders. Patient is family are comfortable with this plan and his questions are answered. Departure - Departure Time of Disposition: 08:25 Disposition: DC/Tfer to Acute Hospital 02 Clinical Impression: Mass of bladder, Metastatic cancer, Gross hematuria - Discharge Information Referrals: PCP,None [Primary Care Provider] - Forms: ED Department Discharge, Interfacility Transfer [facility] Sepsis Event Note - Evaluation Sepsis Screening Result: No Definite Risk - Focused Exam Vital Signs: Vital Signs Temp Pulse Resp BP Pulse Ox 10/24/19 05:09 35.8 C L 70 20 154/93 H 97 Date Exam was Performed: 10/24/19 Time Exam was Performed: 09:10 - My Orders Last 24 Hours: My Active Orders 10/24/19 05:54 EKG Documentation Completion [RC] STAT Sodium Chloride 0.9% [Saline Flush] 10 ml FLUSH ASDIRECTED PRN Peripheral IV Insertion Adult [OM.PC] Stat 10/24/19 06:12 CULTURE URINE [RM] Stat 10/24/19 06:30 Lactated Ringers [Ringers, Lactated] 1,000 ml IV ASDIRECTED - Assessment/Plan Last 24 Hours: My Active Orders 10/24/19 05:54 EKG Documentation Completion [RC] STAT Sodium Chloride 0.9% [Saline Flush] 10 ml FLUSH ASDIRECTED PRN Peripheral IV Insertion Adult [OM.PC] Stat 10/24/19 06:12 CULTURE URINE [RM] Stat 10/24/19 06:30 Lactated Ringers [Ringers, Lactated] 1,000 ml IV ASDIRECTED Assessment:: Gross Hematuria most likely from a new identified bladder mass concerning for transitional carcinoma. Liver mets Bone mets. Plan: Transfer to [facility] for further care and management.
[2019-10-24] MEDS ORDERED: Iopamidol 612 MG/ML 100 ML Bottle IVPUSH ONE (06:26)
[2019-10-24] MEDS ORDERED: Lactated Ringers 1,000 ML IV SCH (06:30)
[2019-10-24 06:55] LABS: ANION GAP 11.1 mmol/L (10-20)
--- NOTE | 2019-10-24 07:56 | CR ---
[id number] RAD/RAD Chest PA And Lateral EXAM: FRONTAL AND LATERAL CHEST INDICATION: Chest pain and shortness of breath. COMPARISON: None. DISCUSSION: Linear atelectasis or scarring in the left lung base. A 93 mm rounded masslike opacity could be seen in the context of the hiatus hernia, but a CT abdomen and and pelvis from the same time demonstrates that this is a mass. Prior sternotomy with valve replacement. IMPRESSION: 1. Mediastinal mass along the right aspect of the distal aorta and esophagus. Haider Browne MD 10/24/19 0754 Thank you for allowing us to participate in the care of your patient.
--- NOTE | 2019-10-24 08:10 | CT ---
[id number] CT/CT Abdomen Pelvis W IV EXAM: ABDOMEN AND PELVIS CT WITH CONTRAST INDICATION: Left lower quadrant abdominal pain and gross hematuria. COMPARISON: None. DISCUSSION: Mild linear scarring or atelectasis in the lung bases, left greater than right. Prior sternotomy with aortic valve replacement. Along the right aspect of the distal esophagus and aorta there is a mediastinal mass that measures about 56 x 50 x 40 mm. There are innumerable hypoenhancing masses scattered throughout the liver replacing about 80% of the parenchyma and measuring up to about 44 mm in diameter. These are consistent with metastatic disease. Additionally, there is moderate bilateral iliac chain and mild retroperitoneal adenopathy that is compatible with metastatic disease. A cash posting representative right external iliac node is 31 x 21 mm and a left pelvic node is 39 x 32 mm. Involving the prostate and the posterior urinary bladder there is a mass that measures up to 56 mm in diameter. This is suspicious for a primary bladder or prostate malignancy. Additionally, there is an area of contact with the anterior wall of the rectum and extension into the rectal wall is not excluded. The mass compresses or invades the distal left ureter resulting in mild hydroureteronephrosis. There is a thick-walled appearance of the gallbladder which could relate to the underlying liver metastases, but could also be seen with cholecystitis. HIDA scan could provide further evaluation if clinical signs and symptoms are equivocal. Fat-containing bilateral inguinal hernias. Left hip arthroplasty. Atherosclerotic plaque scattered throughout the aorta and its major branches with mild ectasia of the infrarenal abdominal aorta. There are bilateral renal cysts measuring up to about 15 mm in diameter. Diverticulosis of the colon without evidence of diverticulitis. Mild nonspecific nodularity of the adrenal glands. The pancreas, spleen, small bowel and the appendix are unremarkable. No free air or free fluid. IMPRESSION: 1. 56 mm mass in the pelvis involving the posterior bladder and prostate. This is suggestive of a primary bladder or prostate malignancy. The mass contacts and could involve the anterior wall of the rectum and results in mild left hydroureteronephrosis. 2. Moderate pelvic and mild retroperitoneal adenopathy is compatible with metastatic disease. 3. Innumerable hepatic metastases replacing about 80% of the liver parenchyma compatible with hepatic metastases. Gallbladder wall thickening is nonspecific, but felt to be likely reactive to the liver metastases. 4. A 50 mm mediastinal mass is likely metastatic. Haider Browne MD 10/24/19 0815 Thank you for allowing us to participate in the care of your patient.
[2019-10-24 09:16] VITALS: BP 142/75; PULSE 82
== END 2019-10-24 10:00 | disposition short-term general hospital (02) ==
LOC: VM.ED 05:05
DX: N32.89 Other specified disorders of bladder (principal); R31.0 Gross hematuria; C61 Malignant neoplasm of prostate; Z88.8 Allergy status to other drugs, medicaments and biological substances; Z79.82 Long term (current) use of aspirin; Z79.899 Other long term (current) drug therapy; I10 Essential (primary) hypertension; M10.9 Gout, unspecified; E66.9 Obesity, unspecified; Z68.30 Body mass index [BMI] 30.0-30.9, adult; Z87.891 Personal history of nicotine dependence
CPT/HCPCS: 36415; 71046; 74177; 80053; 81001; 83880; 84484; 85025; 85610; 87086; 93005; 99284; 99285; J7120; Q9967